=== PATIENT | female | born 1950 | race Caucasian/White ===

== ENCOUNTER 2016-09-10 16:16 | Emergency (ER) | payer MEDICARE, OTHER ==
[~2016-09-10] VITALS: Ht 172.7 cm; Wt 100.0 kg
[~2016-09-10 16:16] MED LIST: ACIDOPHILUS PO; ALDACTONE 25MG25 MG PO; AMBIEN 10MG10 MG PO; AMBIEN CR 12.12.5 MG PO; AMBIEN CR12.5 MG PO; AMPICILLIN 500500 MG PO; ASPIR-LOW81 MG PO; ASPIRIN E.C. 8181 MG PO; ATARAX 25MG25 MG/TAB PO; ATARAX25 MG PO; BACTROBAN 22GM22 GM TP; BIOTIN1000 MCG PO; BIOTIN800 MCG PO; CARAFATE S1 GM/10 ML PO; CENTRUM1 TAB PO; CLONAZEPAM PO; COLACE 100100 MG/CAP PO; CRESTOR20 MG PO; Colace PO; D-31000 IU PO; DULCOLAX; ERY-TAB250 M1 PO; FISH OIL CONC1000 MG PO; FLAXSEED OIL1000 MG PO; FORTAMET500 MG PO; FUROSEMIDE40 MG PO; GABAPENTIN600 MG PO; GARLIC1000 MG PO; GLUCOTROL10 MG PO; GLUCOTROL5 MG PO; HYDROCORTISONE30 G1 TP; K-DUR 10 MEQ T10 MEQ PO; KLOR-CON 1010 MEQ PO; LASIX 20MG TABL20 MG PO; LOPRESSOR 225 MG/TAB PO; LOTRIMIN1% TP; MAG-OX 400400 MG/TAB PO; MAGNESIUM200 MG PO; MONODOX100 PO; MVI; NIZORAL CREAM15 GM TP; NORVASC 10MG10 MG PO; NOVOLOG 100U100 U/M1 SC; OMEGA-3 FISH1200 MG PO; PLAVIX 75MG TAB75 MG PO; PLETAL 100MG T100 MG PO; POLYETHYLENE GL PO; PRIL40 PO; REGLAN 10MG10 MG/TAB PO; RITE AID BIO2500 MCG PO; SANTYL OINT15 GM TP; SLOW-MAG 106 MG1 ECT PO; SPIRONOLACTONE25 MG PO; TEFLARO 60600 MG/VIA IV; TEMOVATE CREAM15 GM TP; TIZANIDINE PO; TRADJENTA5 MG PO; TRAMADOL50 MG PO; TRIAMTERENE W/H1 CAP PO; TYLENOL 500MG500 MG PO; ULTRAM 50MG TAB50 MG PO; VITAMIN B12 PO; VITAMIN C500 MG PO; VITAMIN E100 I3 PO; VITAMIN E1000 IU PO; VYTORIN; ZANAFLEX CAPSULE6 MG PO; ZANAFLEX4 M1 PO; ZYLOPRIM 100MG100 MG PO; [UNRECOGNIZED DRUG - OTHER] TP
[2016-09-10 16:18] VITALS: BP 146/72; TEMP 97.8
[2016-09-10 17:04] LABS: CALCIUM 9.8 mg/dL (8.4-10.2); CREATININE, serum 1.25 mg/dL (0.52-1.25); POTASSIUM 4.2 mmol/L (3.4-5.0)
[2016-09-10 17:52] VITALS: PULSE 76
== END 2016-09-10 17:53 | disposition home or self-care (01) ==
LOC: COL.ER 16:16
PROVIDERS: Emergency Medicine
DX: Z03.89 Encounter for observation for other suspected diseases and conditions ruled out (principal); E11.22 Type 2 diabetes mellitus with diabetic chronic kidney disease; I12.9 Hypertensive chronic kidney disease with stage 1 through stage 4 chronic kidney disease, or unspecified chronic kidney disease; N18.9 Chronic kidney disease, unspecified; I73.9 Peripheral vascular disease, unspecified; Z79.02 Long term (current) use of antithrombotics/antiplatelets; Z79.82 Long term (current) use of aspirin; Z79.84 Long term (current) use of oral hypoglycemic drugs

== ENCOUNTER 2017-02-19 15:34 | Emergency (ER) | payer MEDICARE, OTHER ==
[~2017-02-19] VITALS: Ht 165.1 cm; Wt 115.5 kg
[~2017-02-19 15:34] MED LIST changes: +ALDACTONE 25MG25 M1 PO; -FUROSEMIDE40 MG PO; +LASIX 40MG TABL40 MG PO; -SPIRONOLACTONE25 MG PO
[2017-02-19 15:38] VITALS: TEMP 97.7
[2017-02-19] MEDS ORDERED: GLUCOPHAGE1000 MG PO (16:04)
[2017-02-19] MEDS ORDERED: ERGOCALCIFER50000 IU PO (16:04)
[2017-02-19] MEDS ORDERED: MYSOLINE 5050 MG/TAB PO (16:04)
[2017-02-19] MEDS ORDERED: PEPCID 20MG TAB20 MG PO (16:04)
[2017-02-19] MEDS ORDERED: TEMOVATE0.052 TOP (16:39)
[2017-02-19] MEDS ORDERED: KLONOPIN 1MG1 MG PO (16:39)
[2017-02-19] MEDS ORDERED: COLACE 100100 MG/CAP PO (16:40)
[2017-02-19] MEDS ORDERED: TYLENOL 500MG500 MG PO (16:40)
[2017-02-19] MEDS ORDERED: ERY-TAB250 MG PO (16:41)
[2017-02-19] MEDS ORDERED: FERROUS GL325 MG/TAB PO (16:42)
[2017-02-19] MEDS ORDERED: NEURONTIN300 MG/CAP PO (16:44)
[2017-02-19] MEDS ORDERED: ATARAX 25MG25 MG/TAB PO (16:46)
[2017-02-19] MEDS ORDERED: NOVOLOG FLEX100 U/ML SQ (16:47)
[2017-02-19] MEDS ORDERED: MIRALAX PA17 GM/Dose PO (16:50)
[2017-02-19 17:15] VITALS: BP 185/94; PULSE 71
== END 2017-02-19 17:15 | disposition home or self-care (01) ==
LOC: COL.ER 15:34
DX: S52.502A Unspecified fracture of the lower end of left radius, initial encounter for closed fracture (principal); S00.93XA Contusion of unspecified part of head, initial encounter; I12.9 Hypertensive chronic kidney disease with stage 1 through stage 4 chronic kidney disease, or unspecified chronic kidney disease; E11.22 Type 2 diabetes mellitus with diabetic chronic kidney disease; N18.9 Chronic kidney disease, unspecified; E78.5 Hyperlipidemia, unspecified; I73.9 Peripheral vascular disease, unspecified; Z79.82 Long term (current) use of aspirin; Z79.4 Long term (current) use of insulin; Z23 Encounter for immunization; W01.198A Fall on same level from slipping, tripping and stumbling with subsequent striking against other object, initial encounter; Y92.009 Unspecified place in unspecified non-institutional (private) residence as the place of occurrence of the external cause

== ENCOUNTER 2018-03-02 14:52 | Inpatient (IN) | payer MEDICARE, OTHER ==
[~2018-03-02] VITALS: Ht 165.1 cm; Wt 98.5 kg
[~2018-03-02 14:52] MED LIST changes: +ERGOCALCIFER50000 IU PO; +ERY-TAB250 MG PO; +FERROUS GL325 MG/TAB PO; +GLUCOPHAGE1000 MG PO; +KLONOPIN 1MG1 MG PO; +MIRALAX PA17 GM/Dose PO; +MYSOLINE 5050 MG/TAB PO; +NEURONTIN300 MG/CAP PO; +NOVOLOG FLEX100 U/ML SQ; +PEPCID 20MG TAB20 MG PO; +TEMOVATE0.052 TOP
[2018-03-02 15:38] LABS: BASO % 0.3 % (0.0-2.0); EOS # 0.1 (0.0-0.7); EOS % 0.6 % (0-4.0); GRAN # 6.5 (1.4-6.5); GRAN % 65.2 % (42.2-75.2); HEMATOCRIT 42.6 % (37.0-47.0); HEMOGLOBIN 14.4 g/dl (12.5-16.0); LYMPH # 2.2 (1.2-3.4); MEAN CELL VOLUME 95 fl (80.0-100.0); MEAN CORPUSCULAR HEMOGLOBIN 32 pg (27.0-31.0); MEAN CORPUSCULAR HGB CONC 34 g/dl (33.0-37.0); MONO # 1.1 (0.1-0.6); MONO % 11.4 % (1.7-9.3); PLATELET COUNT 284 K/mm3 (130-400); RED BLOOD COUNT 4.51 M/mm3 (4.10-5.30); REDCELL DISTRIBUTION WIDTH-CV 14.4 % (11.5-14.5)
[2018-03-02 15:53] LABS: ALBUMIN 3.8 gm/dL (3.5-5.0); BILIRUBIN,TOTAL 1.8 mg/dL (0.0-1.0); C-REACTIVE PROTEIN 6.7 mg/dL (0.0-0.9); CALCIUM 9.3 mg/dL (8.4-10.2); CREATININE, serum 0.93 mg/dL (0.52-1.25); POTASSIUM 3.3 mmol/L (3.4-5.0); TOTAL PROTEIN 7.4 gm/dL (6.4-8.2)
[2018-03-02 16:02] LABS: TROPONIN-I 0.028 ng/mL (0.000-0.034)
[2018-03-02 16:30] LABS: COLLECTION METHOD CATHETER
[2018-03-02 16:42] LABS: MUCOUS Present /lpf; PH 7 (5-8); SQUAMOUS EPITHELIAL 0-2 /hpf; URINE APPEARANCE Cloudy; URINE BACTERIA Many /hpf; URINE BILIRUBIN Positive (NEGATIVE); URINE BLOOD Negative (NEGATIVE); URINE COLOR Amber; URINE GLUCOSE Negative (NEGATIVE); URINE KETONE 1+ (NEGATIVE); URINE LEUKOCYTE ESTERASE 3+ (NEGATIVE); URINE NITRATE Negative (NEGATIVE); URINE PROTEIN(semi-quant) 3+ (NEGATIVE); URINE RBC 0-2 /hpf; URINE UROBILINOGEN >=4.0 mg/dL (NEGATIVE)
[2018-03-02] MEDS ORDERED: VTAMINC250TA (17:18)
[2018-03-02] MEDS ORDERED: MULTIPLE VITAMI1 CAP PO (17:20)
[2018-03-02] MEDS ORDERED: TRADJENTA5 MG PO (17:21)
[2018-03-02 20:04] VITALS: BP 124/58; PULSE 76; TEMP 98.6
[2018-03-03] VITALS (7 sets, daily range): BP systolic 139–198; BP diastolic 57–84; PULSE 63–90; TEMP 97.5–98.6
[2018-03-03 13:27] LABS: CALCIUM 8.6 mg/dL (8.4-10.2); CREATININE, serum 0.81 mg/dL (0.52-1.25); POTASSIUM 3.4 mmol/L (3.4-5.0)
[2018-03-04 04:00] VITALS: BP 159/81; PULSE 71; TEMP 98.3
[2018-03-04 07:22] LABS: BASO % 0.5 % (0.0-2.0); EOS # 0.2 (0.0-0.7); EOS % 2.4 % (0-4.0); GRAN # 3.6 (1.4-6.5); HEMATOCRIT 39.6 % (37.0-47.0); HEMOGLOBIN 12.9 g/dl (12.5-16.0); LYMPH # 1.7 (1.2-3.4); LYMPH % 26.7 % (20.0-51.0); MEAN CELL VOLUME 98 fl (80.0-100.0); MEAN CORPUSCULAR HEMOGLOBIN 32 pg (27.0-31.0); MEAN CORPUSCULAR HGB CONC 33 g/dl (33.0-37.0); MEAN PLATELET VOLUME 9.3 fl (7.4-10.4); MONO # 0.7 (0.1-0.6); MONO % 11.8 % (1.7-9.3); PLATELET COUNT 234 K/mm3 (130-400); RED BLOOD COUNT 4.06 M/mm3 (4.10-5.30); REDCELL DISTRIBUTION WIDTH-CV 14.4 % (11.5-14.5)
[2018-03-04 07:49] LABS: CALCIUM 8.8 mg/dL (8.4-10.2); CREATININE, serum 0.69 mg/dL (0.52-1.25); POTASSIUM 3.9 mmol/L (3.4-5.0)
[2018-03-04 09:01] VITALS: BP 153/66; PULSE 77; TEMP 99
[2018-03-04 12:27] VITALS: BP 159/77; PULSE 77; TEMP 97.9
[2018-03-04 15:45] VITALS: BP 212/82; PULSE 80; TEMP 97.5
[2018-03-04 20:29] VITALS: BP 155/64; PULSE 95; TEMP 98.1
[2018-03-05] VITALS (8 sets, daily range): BP systolic 153–185; BP diastolic 54–89; PULSE 77–96; TEMP 98–98.9
[2018-03-05 07:09] LABS: HEMATOCRIT 37.9 % (37.0-47.0); HEMOGLOBIN 12.7 g/dl (12.5-16.0); MEAN CELL VOLUME 95 fl (80.0-100.0); MEAN CORPUSCULAR HEMOGLOBIN 32 pg (27.0-31.0); MEAN CORPUSCULAR HGB CONC 34 g/dl (33.0-37.0); MEAN PLATELET VOLUME 8.9 fl (7.4-10.4); PLATELET COUNT 248 K/mm3 (130-400); REDCELL DISTRIBUTION WIDTH-CV 14.1 % (11.5-14.5)
[2018-03-05 07:19] LABS: CALCIUM 8.9 mg/dL (8.4-10.2); CREATININE, serum 0.72 mg/dL (0.52-1.25); POTASSIUM 3.6 mmol/L (3.4-5.0)
[2018-03-05 07:37] LABS: BAND 5 % (0-10); BASOPHIL 1 % (0-2); EOSINOPHIL 3 % (0-4); LYMPHOCYTE 32 % (20.0-51.0); NEUTROPHILS 50 % (42.0-75.2); PLATELET ESTIMATE NORMAL (NORMAL)
[2018-03-06 00:14] VITALS: BP 154/73; PULSE 88
[2018-03-06 03:20] VITALS: BP 172/70; PULSE 89
[2018-03-06 06:43] LABS: BASO % 0.6 % (0.0-2.0); EOS # 0.2 (0.0-0.7); EOS % 2.4 % (0-4.0); GRAN % 48.1 % (42.2-75.2); HEMATOCRIT 37.5 % (37.0-47.0); HEMOGLOBIN 12.5 g/dl (12.5-16.0); LYMPH # 2.3 (1.2-3.4); LYMPH % 36.5 % (20.0-51.0); MEAN CELL VOLUME 96 fl (80.0-100.0); MEAN CORPUSCULAR HEMOGLOBIN 32 pg (27.0-31.0); MEAN CORPUSCULAR HGB CONC 33 g/dl (33.0-37.0); MEAN PLATELET VOLUME 8.8 fl (7.4-10.4); MONO # 0.8 (0.1-0.6); MONO % 11.8 % (1.7-9.3); PLATELET COUNT 266 K/mm3 (130-400); REDCELL DISTRIBUTION WIDTH-CV 14.4 % (11.5-14.5)
[2018-03-06 06:59] LABS: CALCIUM 9.1 mg/dL (8.4-10.2); CREATININE, serum 0.77 mg/dL (0.52-1.25); POTASSIUM 3.8 mmol/L (3.4-5.0)
[2018-03-06 09:01] VITALS: BP 162/67; PULSE 90; TEMP 97.7
[2018-03-06 11:34] VITALS: BP 161/63; PULSE 78; TEMP 98.4
[2018-03-06] MEDS ORDERED: DOXYCYCLINE HY100 MG PO (13:46)
[2018-03-06] MEDS ORDERED: NORVASC 10MG10 MG PO (13:47)
[2018-03-06] MEDS ORDERED: ULTRAM 50MG TAB50 MG PO (13:52)
[2018-03-06 15:24] VITALS: BP 161/63; PULSE 78; TEMP 98.4
== END 2018-03-06 17:16 | DRG 603 ==
LOC: COL.ER 14:52 → SURG 18:47 → MEDICAL 03-04 18:02
PROVIDERS: Emergency Medicine; Internal Medicine; Physician Assistant
DX: L03.311 Cellulitis of abdominal wall (principal); N39.0 Urinary tract infection, site not specified; L03.115 Cellulitis of right lower limb; Z66 Do not resuscitate; E11.51 Type 2 diabetes mellitus with diabetic peripheral angiopathy without gangrene; B95.62 Methicillin resistant Staphylococcus aureus infection as the cause of diseases classified elsewhere; E66.01 Morbid (severe) obesity due to excess calories; Z68.36 Body mass index [BMI] 36.0-36.9, adult; B96.4 Proteus (mirabilis) (morganii) as the cause of diseases classified elsewhere; I10 Essential (primary) hypertension; K21.9 Gastro-esophageal reflux disease without esophagitis; Z87.891 Personal history of nicotine dependence; E87.6 Hypokalemia
CPT/HCPCS: 99223-AI; 99231-AI; 99233-AI; 99239; G8978-GP; G8979-GP; J0360; J0696; J1335; J1644; J1815; J2405; J3370; J7030; J7050

== ENCOUNTER 2018-03-30 22:15 | Inpatient (IN) | payer MEDICARE, OTHER ==
[~2018-03-30] VITALS: Ht 165.1 cm; Wt 99.7 kg
[~2018-03-30 22:15] MED LIST changes: +DOXYCYCLINE HY100 MG PO; +MULTIPLE VITAMI1 CAP PO; +VTAMINC250TA
[2018-03-30 22:59] LABS: BASO # 0.1 (0.0-0.2); BASO % 0.4 % (0.0-2.0); EOS % 0.2 % (0-4.0); GRAN # 12.2 (1.4-6.5); GRAN % 75.3 % (42.2-75.2); HEMOGLOBIN 11.4 g/dl (12.5-16.0); LYMPH # 2.5 (1.2-3.4); LYMPH % 15.4 % (20.0-51.0); MEAN CELL VOLUME 94 fl (80.0-100.0); MEAN CORPUSCULAR HEMOGLOBIN 32 pg (27.0-31.0); MEAN CORPUSCULAR HGB CONC 34 g/dl (33.0-37.0); MEAN PLATELET VOLUME 8.3 fl (7.4-10.4); MONO # 1.3 (0.1-0.6); MONO % 8.1 % (1.7-9.3); PLATELET COUNT 478 K/mm3 (130-400); RED BLOOD COUNT 3.62 M/mm3 (4.10-5.30); REDCELL DISTRIBUTION WIDTH-CV 13.9 % (11.5-14.5)
[2018-03-30 23:08] LABS: ALBUMIN 3.7 gm/dL (3.5-5.0); BILIRUBIN,TOTAL 0.8 mg/dL (0.0-1.0); CALCIUM 9.3 mg/dL (8.4-10.2); CREATININE, serum 0.83 mg/dL (0.52-1.25); TOTAL PROTEIN 7.4 gm/dL (6.4-8.2)
[2018-03-30 23:10] LABS: COLLECTION METHOD CATHETER
[2018-03-30 23:23] LABS: PH 5 (5-8); SQUAMOUS EPITHELIAL None Seen /hpf; URINE APPEARANCE Turbid; URINE BACTERIA None Seen /hpf; URINE BILIRUBIN Negative (NEGATIVE); URINE BLOOD 1+ (NEGATIVE); URINE COLOR Amber; URINE GLUCOSE Negative (NEGATIVE); URINE KETONE Trace (NEGATIVE); URINE LEUKOCYTE ESTERASE 2+ (NEGATIVE); URINE NITRATE Negative (NEGATIVE); URINE PROTEIN(semi-quant) 2+ (NEGATIVE); URINE RBC >50 /hpf; URINE UROBILINOGEN >=4.0 mg/dL (NEGATIVE)
[2018-03-31 01:58] VITALS: BP 134/47; PULSE 83; TEMP 98.6
[2018-03-31] MEDS ORDERED: NEURONTIN600 MG/TAB PO (05:10)
--- NOTE | 2018-03-31 05:39 | NUR ---
Pt came to the floor from the ED mid shift, initial assessments completed, family history checked, no C/O pain beyond her normal baseline, Vs have been stable. Pt did try and sleep very late in the shift.
[2018-03-31 06:27] LABS: BASO % 0.2 % (0.0-2.0); EOS % 0.3 % (0-4.0); GRAN % 66.2 % (42.2-75.2); HEMOGLOBIN 10.3 g/dl (12.5-16.0); LYMPH # 2.8 (1.2-3.4); LYMPH % 22.8 % (20.0-51.0); MEAN CELL VOLUME 96 fl (80.0-100.0); MEAN CORPUSCULAR HEMOGLOBIN 31 pg (27.0-31.0); MEAN CORPUSCULAR HGB CONC 32 g/dl (33.0-37.0); MEAN PLATELET VOLUME 8.4 fl (7.4-10.4); MONO # 1.2 (0.1-0.6); MONO % 9.9 % (1.7-9.3); PLATELET COUNT 416 K/mm3 (130-400); RED BLOOD COUNT 3.33 M/mm3 (4.10-5.30); REDCELL DISTRIBUTION WIDTH-CV 14.1 % (11.5-14.5)
[2018-03-31 06:28] LABS: HEMATOCRIT 31.9 % (37.0-47.0)
[2018-03-31 06:42] LABS: CALCIUM 8.6 mg/dL (8.4-10.2); CREATININE, serum 0.75 mg/dL (0.52-1.25); POTASSIUM 3.1 mmol/L (3.4-5.0)
[2018-03-31 08:27] VITALS: BP 157/77; PULSE 89; TEMP 98.4
--- NOTE | 2018-03-31 10:12 | NUR ---
Initial visit; Patient thanked C[employer]os [employer] Developer for looking in on her and offering God's blessings and keeping her in [employer]'s prayers.
[2018-03-31 10:55] VITALS: BP 147/62; PULSE 77; TEMP 99.1
--- NOTE | 2018-03-31 11:04 | NUR ---
Assessment completed, alert/oriented, vital signs stable, patient has an extensive amount of wounds and sores to her sacral/buttocks, RLE/ foot, unnder abdominal folds/panis/groin, wound care consulted and I have spoke with them on the phone this morning, they hope to get to the hospital by tommorow, she is started on IVF and IV abx for UTI, turning and repositioning at least every 1-2 hours, toileting often to keep skin dry, Surgical/ ID/ Ortho consults ahve been made
--- NOTE | 2018-03-31 11:09 | NUR ---
Patient has large open wound/sore to her right innner buttock (stg II), she has a smaller stg II wound/sore to her inner left buttock, RLE has extensive wound/open areas due to poor circulation, right great toe is black and necrotic and Ortho consulted for this, patient has severe excoriation and irritation under her abdomnial folds and in her groin with an extensive amount of wounds/ open areas
[2018-03-31 14:57] VITALS: BP 145/54; PULSE 93; TEMP 99
--- NOTE | 2018-03-31 16:32 | NUR ---
FLORA met with the patient to discuss discharge plan. The patient has been residing at [facility] for a skilled stay. The patient reports that she is unsure if she would like to return there upon discharge and states that it is too early for her to make any decisions. The patient's PCP is Dr. Clyde Titus and she does not have any advanced directives. The patient states that she will think about if she wants to complete them or not. FLORA has contacted and updated Mikey at [facility] and will continue to follow.
--- NOTE | 2018-03-31 18:15 | NUR ---
Discharge instructions reviewed with the patient and his , instructed to follow up with PCP in 1 week/ already scheduled with /Sudheer, instructed to eat low fiber diet untill follow up, scripts for prilosec and Carafate given to patient, left arm IV site removed, leaving with / I personally escorted them out the door
--- NOTE | 2018-03-31 19:18 | NUR ---
Resting in bed asleep. Call light in reach.
[2018-03-31 20:46] VITALS: BP 147/54; PULSE 89; TEMP 99.1
--- NOTE | 2018-03-31 21:06 | NUR ---
Up to bedside commode and returned to bed x2 assist. Assessment complete. Lungs clear. Pulses absent in right lower leg. Right great toe necrotic, right lower leg wound present, dressed with nonstick dressing and kerlix. Several open wounds in ABD fold and shweta area. Dressing in place as per wound care guidelines. Wounds to buttock area dressed by previous shift-dressing intact. Reports 10/10 pain in right lower leg. Provided PRN tylenol. Blood sugar 78. Educated patient to eat snack. Ate 3 spoonfuls of pudding then refused any other snacks. Denies other needs. Will monitor.
[2018-04-01] VITALS (9 sets, daily range): BP systolic 129–160; BP diastolic 47–86; PULSE 77–98; TEMP 98.2–98.7
--- NOTE | 2018-04-01 00:25 | NUR ---
Resting in bed. Reports 6/10 pain in right leg. Gave scheduled ultram. Denies other needs. Call light in reach.
--- NOTE | 2018-04-01 03:59 | NUR ---
Resting in bed. Denies needs. Call light in reach.
--- NOTE | 2018-04-01 04:05 | NUR ---
Resting in bed. Denies needs at this time. Call light in reach.
--- NOTE | 2018-04-01 06:36 | NUR ---
Left for OR. Preop pepcid and NS given. Had uneventful night.
[2018-04-01 06:39] LABS: BASO % 0.3 % (0.0-2.0); EOS # 0.1 (0.0-0.7); EOS % 0.6 % (0-4.0); GRAN # 8.7 (1.4-6.5); GRAN % 73.8 % (42.2-75.2); HEMATOCRIT 31.2 % (37.0-47.0); HEMOGLOBIN 10.4 g/dl (12.5-16.0); LYMPH # 2.1 (1.2-3.4); LYMPH % 17.9 % (20.0-51.0); MEAN CELL VOLUME 94 fl (80.0-100.0); MEAN CORPUSCULAR HEMOGLOBIN 31 pg (27.0-31.0); MEAN CORPUSCULAR HGB CONC 33 g/dl (33.0-37.0); MEAN PLATELET VOLUME 8.3 fl (7.4-10.4); MONO # 0.8 (0.1-0.6); MONO % 6.8 % (1.7-9.3); PLATELET COUNT 441 K/mm3 (130-400); RED BLOOD COUNT 3.32 M/mm3 (4.10-5.30); REDCELL DISTRIBUTION WIDTH-CV 13.9 % (11.5-14.5)
--- NOTE | 2018-04-01 07:15 | NUR ---
Patient is not on the Medical floor at this time, she went down to OR at 0630 for amputation of right great toe
[2018-04-01 07:19] LABS: CALCIUM 8.6 mg/dL (8.4-10.2); CREATININE, serum 0.63 mg/dL (0.52-1.25); MAGNESIUM 1.9 mg/dL (1.6-2.3); POTASSIUM 3.7 mmol/L (3.4-5.0)
--- NOTE | 2018-04-01 09:35 | NUR ---
patient arrived back to the Medical floor from PACU at this time, she is alert/oriented, moderate amount of pain to right foot/ leg but it is tolerable at this time, vital signs stable, right foot/ RLE wrapped in dressing
--- NOTE | 2018-04-01 19:04 | NUR ---
Resting in bed. Assisted onto bed emerson. Provided call light. Will call when finished.
--- NOTE | 2018-04-01 19:18 | NUR ---
Assisted off bedpan. No results. Assessment complete. Lungs clear. Wounds present in ABD folds. Intradry present. Dressing to bilateral buttock clean, dry, intact. Right great toe amputated-dressing in place to toe and right lower extremity, CDI. Pulses weak in left lower extremity. Reports 4/10 pain in right leg. Denies needs at this time. Call light in reach. Will monitor.
--- NOTE | 2018-04-01 22:22 | NUR ---
Resting in bed asleep. Call light in reach.
--- NOTE | 2018-04-01 23:30 | NUR ---
Bed alarm sounding. Upon arrival in room patient sitting at bedside attemping to "get up to go to restroom." Staff assisted patient to bedside commode X2 assist and returned to bed. Denies other needs. Call light in reach.
[2018-04-02] VITALS (7 sets, daily range): BP systolic 114–152; BP diastolic 55–69; PULSE 66–85; TEMP 96.5–98
--- NOTE | 2018-04-02 04:23 | NUR ---
Resting in bed asleep. Call light in reach.
--- NOTE | 2018-04-02 06:12 | NUR ---
Uneventful night. Reports 5/10 pain in right foot this AM. Provided schedule tramadol. Denies other needs. Call light in reach.
[2018-04-02 06:39] LABS: BASO % 0.1 % (0.0-2.0); GRAN # 8.1 (1.4-6.5); GRAN % 79.7 % (42.2-75.2); LYMPH # 1.3 (1.2-3.4); LYMPH % 12.6 % (20.0-51.0); MEAN CELL VOLUME 96 fl (80.0-100.0); MEAN CORPUSCULAR HGB CONC 33 g/dl (33.0-37.0); MEAN PLATELET VOLUME 8.5 fl (7.4-10.4); MONO # 0.7 (0.1-0.6); MONO % 6.8 % (1.7-9.3); PLATELET COUNT 390 K/mm3 (130-400); RED BLOOD COUNT 2.94 M/mm3 (4.10-5.30); REDCELL DISTRIBUTION WIDTH-CV 13.8 % (11.5-14.5)
[2018-04-02 06:43] LABS: HEMATOCRIT 28.1 % (37.0-47.0); HEMOGLOBIN 9.2 g/dl (12.5-16.0); MEAN CORPUSCULAR HEMOGLOBIN 31 pg (27.0-31.0)
[2018-04-02 06:56] LABS: CALCIUM 8.5 mg/dL (8.4-10.2); CREATININE, serum 0.71 mg/dL (0.52-1.25); POTASSIUM 3.6 mmol/L (3.4-5.0)
--- NOTE | 2018-04-02 07:00 | NUR ---
Report given to BARTOLO Gutierrez.
--- NOTE | 2018-04-02 09:30 | NUR ---
Pt is awake and A/Ox4, sitting up in bed working on eating breakfast. She denies pain at this time. IVF are infusing into left FA without complications. Right foot/lower extremity remains in surgical dressing, CDI. Pt denies any other needs at this time.
--- NOTE | 2018-04-02 11:03 | NUR ---
FLORA met with the patient to review discharge plan and therapies recommendation of SNF. The patient reports that she is agreeable to resume SNF upon discharge. FLORA presented and explained the patient choice form. The patient did prefer 1) [facility] 2) Returning back to [facility]. FLORA has contacted and faxed a referral to Ant at [facility]. FLORA faxed updates to Mikey at [facility] and will continue to follow.
--- NOTE | 2018-04-02 13:50 | NUR ---
Ant, at [facility], reports that they do not have any female beds available at this time. SW to inform the patient and continue to follow.
--- NOTE | 2018-04-02 18:29 | NUR ---
Pt has had an uneventful shift. She reports no pain while resting in bed, but that the pain increases with movement. Denies any other needs.
--- NOTE | 2018-04-02 19:24 | NUR ---
ASSISTED PT TO BSC. INCONT SMALL LOOSE DARK STOOL NOTED. MEPILEX ON COCCYX HAS FALLEN OFF. STAGE TWO NOTED. ENC PT TO SHIFT WEIGHT SIDE TO SIDE OFF ULCERTS. DRSG TO RT FOOT CDI.
--- NOTE | 2018-04-02 20:30 | NUR ---
PT RESTING IN BED. ISOLATION FOR MRSA. SEE ASSESSMENT. PT HAS MULTIPLE OPEN ULCERS. SEE MAR FOR PAIN MED GIVEN. PT ORIENTED TO PLACE BUT TOPIC OF CONVERSATION MAKING NO SENSE. PT HAS MAJOR TREMORS OF THE HANDS. POOR HAND COORDINATION. CALL LIGHT IN REACH. BED ALARM SET.
[2018-04-03 04:15] VITALS: BP 157/80; PULSE 54; TEMP 97.8
[2018-04-03 05:58] LABS: BASO % 0.3 % (0.0-2.0); EOS # 0.1 (0.0-0.7); EOS % 1.2 % (0-4.0); GRAN # 5.3 (1.4-6.5); GRAN % 57.5 % (42.2-75.2); LYMPH # 3.1 (1.2-3.4); MEAN CELL VOLUME 98 fl (80.0-100.0); MEAN CORPUSCULAR HGB CONC 32 g/dl (33.0-37.0); MEAN PLATELET VOLUME 8.5 fl (7.4-10.4); MONO # 0.7 (0.1-0.6); MONO % 7.6 % (1.7-9.3); PLATELET COUNT 420 K/mm3 (130-400); RED BLOOD COUNT 2.93 M/mm3 (4.10-5.30); REDCELL DISTRIBUTION WIDTH-CV 14.2 % (11.5-14.5)
[2018-04-03 05:59] LABS: HEMATOCRIT 28.8 % (37.0-47.0); HEMOGLOBIN 9.2 g/dl (12.5-16.0); MEAN CORPUSCULAR HEMOGLOBIN 31 pg (27.0-31.0)
[2018-04-03 06:17] LABS: CALCIUM 8.6 mg/dL (8.4-10.2); CREATININE, serum 0.77 mg/dL (0.52-1.25); POTASSIUM 3.6 mmol/L (3.4-5.0)
--- NOTE | 2018-04-03 06:37 | NUR ---
PT HAS SLEPT WELL THROUGH THE NIGHT. RT LEG ELEVATED- DRSG DRY & INTACT. LAB HERE EARLIER TO DRAW BLOOD.
--- NOTE | 2018-04-03 07:00 | NUR ---
Report received from BARTOLO Jhaveri. Pt sleeping in bed at this time. Will continue to monitor.
[2018-04-03 09:23] VITALS: BP 143/80; PULSE 77; TEMP 98.6
--- NOTE | 2018-04-03 10:18 | NUR ---
Initial visit; Nel thanked Food Inspector for looking in on her and offering God's blessings and to keep her in Food Inspector's prayers.
--- NOTE | 2018-04-03 10:30 | NUR ---
Pt in bed after using commode. Large urine output of clear yellow urine on commode. PICC to KELLY has IVF and ATB. Wounds to pannus and groin area have dressings per wound care. Mepilex and aquacel foam to sacrem wounds/ulcers and are CDI. LLE is reddened. RLE foot is dressed and CDI, elevated on pillows. Pain is 6/10, PRN pain meds given. PT trying to turn on own to releive pressure areas. Wound care states they cannot visit pt today and awaiting call back on confirmed time and date to see them. Will continue to monitor.
[2018-04-03] MEDS ORDERED: MAXIPIME2 GM IV (10:50)
[2018-04-03] MEDS ORDERED: VANCOCIN HCL1 GM IV (10:51)
[2018-04-03 12:21] VITALS: BP 131/67; PULSE 69; TEMP 97.7
--- NOTE | 2018-04-03 12:30 | NUR ---
PICC intact right upper arm with sterile dressing change done with insertion site cleansed with chloraprep x 1, skin prep, stat lock, and tegaderm applied. gauze removed with no drainage noted. no signs or symptoms of IV complications noted. no concerns voiced. re-wrapped with josiah to protect catheter.
[2018-04-03] MEDS ORDERED: DIFLUCAN200 MG PO (13:53)
[2018-04-03] MEDS ORDERED: NYAMYC100000 U/G TP (13:54)
--- NOTE | 2018-04-03 15:10 | NUR ---
Mikey, at [facility], contacted FLORA to inform that they are unable to administer IV antibiotics at this time. FLORA informed the patient and clinical team. The patient was agreeable for FLORA to send a referral to [facility] and [facility]. Referrals were made. Linda, at [facility], reports that they have declined the patient. Joyce, at [facility], reports that they can accept the patient. FLORA informed the patient and she is agreeable to transfer there upon discharge. The patient was also agreeable for FLORA to contact her sister, Ruchi. FLORA contacted Ruchi at [employer] [facility] [employer], where she is employed. FLORA informed Ruchi of where the patient is discharging to. FLORA was also able to inquire her cell phone number and FLORA provided the phone number to the patient. The patient is to discharge today, 04/03, to [facility]. Transportation was set for 1545, via [facility]. FLORA informed the patient, patient's nurse, and [facility]. FLORA also updated [facility] and [facility] is to bring the patient's belongings to the hospital. FLORA also presented and explained the IM form to the patient. The patient verbalized understanding, signed, and she was provided a copy. No additional needs at this time.
[2018-04-03 15:24] VITALS: BP 131/67; PULSE 69; TEMP 97.7
--- NOTE | 2018-04-03 16:15 | NUR ---
Transferred pt at this time. Report called to [facility]. Pt leaving with PICC to [facility]. Antibiotics finished infusing today. Pt transferred in own clothes with all belongings via cart with ambulance drivers. Criteria met.
== END 2018-04-03 16:00 | disposition swing bed (61) | DRG 853 ==
LOC: COL.ER 22:15 → MEDICAL 03-31 00:01
PROVIDERS: Emergency Medicine; Nurse Practitioner Family; Orthopaedic Surgery; Physician Assistant; ADMIT Hospitalist
PROC: 0Y6P0Z0 Detachment at Right 1st Toe, Complete, Open Approach (ICD-10-PCS; principal; 2018-04-01 07:00)
PROC: 0JBN0ZZ Excision of Right Lower Leg Subcutaneous Tissue and Fascia, Open Approach (ICD-10-PCS; 2018-04-01 07:00)
DX: A41.9 Sepsis, unspecified organism (principal); L89.153 Pressure ulcer of sacral region, stage 3; N39.0 Urinary tract infection, site not specified; L03.115 Cellulitis of right lower limb; E87.2 Acidosis; E11.52 Type 2 diabetes mellitus with diabetic peripheral angiopathy with gangrene; I70.261 Atherosclerosis of native arteries of extremities with gangrene, right leg; L97.811 Non-pressure chronic ulcer of other part of right lower leg limited to breakdown of skin; M79.3 Panniculitis, unspecified; I87.2 Venous insufficiency (chronic) (peripheral); D64.9 Anemia, unspecified; D47.3 Essential (hemorrhagic) thrombocythemia; E11.22 Type 2 diabetes mellitus with diabetic chronic kidney disease; I12.9 Hypertensive chronic kidney disease with stage 1 through stage 4 chronic kidney disease, or unspecified chronic kidney disease; N18.9 Chronic kidney disease, unspecified; B95.62 Methicillin resistant Staphylococcus aureus infection as the cause of diseases classified elsewhere; B96.5 Pseudomonas (aeruginosa) (mallei) (pseudomallei) as the cause of diseases classified elsewhere; L89.322 Pressure ulcer of left buttock, stage 2; L89.312 Pressure ulcer of right buttock, stage 2; Z87.891 Personal history of nicotine dependence; Z88.2 Allergy status to sulfonamides; Z88.8 Allergy status to other drugs, medicaments and biological substances; Z91.040 Latex allergy status; E11.622 Type 2 diabetes mellitus with other skin ulcer
CPT/HCPCS: 99222-AI; 99232-AI; 99239; A4216; C1751; J0690; J0692; J0696; J1100; J1170; J1815; J2185; J2250; J2405; J2704; J3010; J3370; J7030; J7050

== ENCOUNTER → 2018-04-06 | Outpatient (REF) ==
[~2018-04-06] MED LIST changes: +DIFLUCAN200 MG PO; +MAXIPIME2 GM IV; +NEURONTIN600 MG/TAB PO; +NYAMYC100000 U/G TP; +VANCOCIN HCL1 GM IV
[2018-04-06 09:49] LABS: C-REACTIVE PROTEIN 4.9 mg/dL (0.0-0.9)
[2018-04-06 09:54] LABS: VANCOMYCIN TROUGH 20.44 ug/mL (7.00-20.00)
== END ==
LOC: ZLAB.WCH 09:28
PROVIDERS: Family Medicine
DX: Z01.89 Encounter for other specified special examinations (principal)

== ENCOUNTER → 2018-04-08 | Outpatient (REF) | LOC: ZLAB.WCH 16:09 | DX: Z01.89 Encounter for other specified special examinations (principal) ==

== ENCOUNTER → 2018-04-13 | Outpatient (REF) ==
[2018-04-13 09:03] LABS: C-REACTIVE PROTEIN 4.2 mg/dL (0.0-0.9)
== END ==
LOC: ZLAB.WCH 08:39
PROVIDERS: Family Medicine
DX: Z01.89 Encounter for other specified special examinations (principal)

== ENCOUNTER → 2018-04-20 | Outpatient (REF) ==
[2018-04-20 09:12] LABS: C-REACTIVE PROTEIN 2.4 mg/dL (0.0-0.9)
[2018-04-20 09:14] LABS: VANCOMYCIN TROUGH 14.73 ug/mL (7.00-20.00)
== END ==
LOC: ZLAB.WCH 08:35
PROVIDERS: Family Medicine
DX: Z01.89 Encounter for other specified special examinations (principal)

== ENCOUNTER → 2018-04-24 | Outpatient (REF) | LOC: ZLAB.WCH 16:14 | DX: Z01.89 Encounter for other specified special examinations (principal) ==

== ENCOUNTER → 2018-04-27 | Outpatient (REF) | LOC: ZLAB.WCH 16:13 | DX: Z01.89 Encounter for other specified special examinations (principal) ==

== ENCOUNTER → 2018-04-30 | Outpatient (REF) | LOC: ZLAB.WCH 16:55 | DX: Z01.89 Encounter for other specified special examinations (principal) ==

== ENCOUNTER → 2018-05-04 | Outpatient (REF) | LOC: ZLAB.WCH 08:38 | DX: Z01.89 Encounter for other specified special examinations (principal) ==

== ENCOUNTER → 2018-05-06 | Outpatient (REF) | LOC: ZLAB.WCH 16:22 | DX: Z01.89 Encounter for other specified special examinations (principal) ==

== ENCOUNTER → 2018-05-11 | Outpatient (REF) | LOC: ZLAB.WCH 16:13 | DX: Z01.89 Encounter for other specified special examinations (principal) ==

== ENCOUNTER 2018-05-14 12:52 | Inpatient (IN) | payer MEDICARE, OTHER ==
[~2018-05-14] VITALS: Ht 165.1 cm; Wt 118.0 kg
[2018-05-20] VITALS (12 sets, daily range): BP systolic 127–159; BP diastolic 54–83; PULSE 64–80; TEMP 97.8–99
[2018-05-20] MEDS ORDERED: NYSTATIN CREAM15 GM TP (06:36)
[2018-05-20] MEDS ORDERED: COZAAR100 MG PO (06:38)
[2018-05-20] MEDS ORDERED: HCTZ 25MG TAB25 MG PO (06:40)
[2018-05-20] MEDS ORDERED: INDERAL40 MG PO (06:40)
[2018-05-20] MEDS ORDERED: ZINC SULFATE220 M1 PO (06:41)
[2018-05-20] MEDS ORDERED: MEGACE ORAL40 MG/ML PO (06:42)
[2018-05-20] MEDS ORDERED: ACIDOPHILIS PO (06:43)
[2018-05-20] MEDS ORDERED: GLUCOTROL 5M5 MG/TAB PO (06:44)
--- NOTE | 2018-05-20 06:44 | NUR ---
PATIENT ROOM 7 PER [facility] AND TRANSFERED TO CART. PATIENT ALERT AND ORIENTED TO PERSON AND PLACE. VERBALIZES UNDERSTANDING OF SURGERY AND CONSENT SIGNED. CONTACT ISOLATION MAINTAINED DUE TO HX OF MRSA. PATIENT STATES THAT SHE HAS BEEN AT [facility] FOR SWING BED. JENNIFER WRAP DRESSING DRY ON THE RIGHT LOWER EXTREMITY. PICC LINE NOTED RIGHT UPPER ARM. PURPLE PORT FLUSHEDWITH MINIMAL BLOOD RETURN AND IVF CONNECTED TO SITE.
[2018-05-20] MEDS ORDERED: VENELEX OINTMEN30 GM TP (06:45)
[2018-05-20] MEDS ORDERED: NORMAL SALINE F10 ML IV ×2 (06:46)
[2018-05-20] MEDS ORDERED: LEXAPRO 10MG10 MG PO (06:47)
[2018-05-20] MEDS ORDERED: HEPARIN LOCK FLU5 M1 IV ×2 (06:48→06:49)
[2018-05-20] MEDS ORDERED: JANUVIA 100MG100 MG PO (06:51)
[2018-05-20] MEDS ORDERED: NORVASC 10MG10 MG PO (06:53)
[2018-05-20] MEDS ORDERED: NEURONTIN100 MG/CAP PO (06:54)
[2018-05-20] MEDS ORDERED: ULTRAM 50MG TAB50 MG PO (06:59)
[2018-05-20] MEDS ORDERED: LIPITOR 40MG TA40 MG PO (07:01)
[2018-05-20] MEDS ORDERED: TYLENOL 325MG325 MG PO (07:02)
[2018-05-20] MEDS ORDERED: GOOD SENSE400 MG/5 M PO (07:03)
[2018-05-20] MEDS ORDERED: NORCO 325 MG-7.1 TAB PO (07:04)
--- NOTE | 2018-05-20 11:30 | NUR ---
Patient has been doing ok since getting back from surgery at 0900. She is very uncomfortable. I have repositioned her and lossened the brace to her leg. She also recieved pain medications but nothing seems to help. Described phantom pain and she said that sounds similar to what she is feeling. No other changes at this time. Call light within reach. Will continue to monitor.
--- NOTE | 2018-05-20 12:45 | NUR ---
PICC intact right upper arm with sterile dressing change done with insertion site cleansed with chloraprep x 1, chlorhexidine imgregnated disk applied. skin prep, stat lock, and tegaderm applied. port flushed with 20ml normal saline with good blood return noted. no signs or symptoms of IV complications noted. no concerns voiced. re-wrapped with josiah to protect catheter.
--- NOTE | 2018-05-20 15:49 | NUR ---
Initial visit; Patient thanked maintenance and custodian supervisor for looking in on her per request. Interstate [employer] Driver offered prayer and will keep her in maintenance and custodian supervisor's prayers. [employer] Driver will continue to look in on pat.
--- NOTE | 2018-05-20 18:00 | NUR ---
Patient has had several different types of pain medications, she stated they are helping but she continues to have pain. She has had norco twice, roxicodone and dilauded since surgery. No complaints of nausea. She is more drowsy this afternoon. No other changes at this time. Call light within reach.
--- NOTE | 2018-05-20 21:40 | NUR ---
Pt resting in bed, has C/O pain, shift asesments complete, left Pt bed in lowest position, call light in reach.
[2018-05-21] VITALS: BP 146/78; PULSE 73; TEMP 97.9
--- NOTE | 2018-05-22 12:53 | NUR ---
05/21 - SW met with patient to discuss discharge planning. Patient's PCP is Dr Titus and she obtains prescriptions from [facility] or [facility]. Patient reports no DME or home health services are used. Patient does not have a DPOA and she is not interested in that at this time. Patient was admitted from [facility] the plan is to retuen there upon discharge. SW will continue to follow and assist with discharge needs.
[2018-05-22] MEDS ORDERED: ASPI325T6 PO (13:02)
[2018-05-22] MEDS ORDERED: PERCOCET 325 MG1 TA2 PO (13:13)
--- NOTE | 2018-05-22 13:32 | NUR ---
Called SCOTTY Hayes. Orders received, updated [facility] with discharge today, director of social media marketing will schedule EMS transport. PRN pain meds will be provided. Will update patient and get ready for transfer.
[2018-05-22 14:18] VITALS: BP 150/95; PULSE 78; TEMP 100.1
--- NOTE | 2018-05-22 14:32 | NUR ---
Patient will be tranferred to [facility] Bed today. SW arranged 9 line transport.
--- NOTE | 2018-05-22 14:34 | NUR ---
Report called to [facility]. Pt updated on status of trasnport. Called SCOTTY Grant and he will do doctor to doctor call. Awaiting EMS but otherwwise pt ready for transfer.
--- NOTE | 2018-05-22 15:00 | NUR ---
PT left via cart with EMS staff for [place]. Denies needs, report called, criteria met.
== END 2018-05-22 15:00 | disposition swing bed (61) | DRG 617 ==
LOC: INPTSU 05-20 05:53 → SURG 05-20 07:30
PROVIDERS: ADMIT Orthopaedic Surgery Sports Medicine
PROC: 0Y6H0Z1 Detachment at Right Lower Leg, High, Open Approach (ICD-10-PCS; principal; 2018-05-20 07:30)
DX: E11.622 Type 2 diabetes mellitus with other skin ulcer (principal); L97.819 Non-pressure chronic ulcer of other part of right lower leg with unspecified severity; L97.311 Non-pressure chronic ulcer of right ankle limited to breakdown of skin; E11.621 Type 2 diabetes mellitus with foot ulcer; Z79.4 Long term (current) use of insulin; T87.89 Other complications of amputation stump; Z89.411 Acquired absence of right great toe; Z88.2 Allergy status to sulfonamides; Z88.8 Allergy status to other drugs, medicaments and biological substances; Z91.040 Latex allergy status; Z87.891 Personal history of nicotine dependence; E11.51 Type 2 diabetes mellitus with diabetic peripheral angiopathy without gangrene
CPT/HCPCS: J0690; J1170; J2250; J2405; J2704; J3010; J7120; L1830

== ENCOUNTER → 2018-05-22 | Outpatient (REF) ==
[~2018-05-22] MED LIST changes: +ACIDOPHILIS PO; +ASPI325T6 PO; +COZAAR100 MG PO; +GLUCOTROL 5M5 MG/TAB PO; +GOOD SENSE400 MG/5 M PO; +HCTZ 25MG TAB25 MG PO; +HEPARIN LOCK FLU5 M1 IV; +INDERAL40 MG PO; +JANUVIA 100MG100 MG PO; +LEXAPRO 10MG10 MG PO; +LIPITOR 40MG TA40 MG PO; +MEGACE ORAL40 MG/ML PO; +NEURONTIN100 MG/CAP PO; +NORCO 325 MG-7.1 TAB PO; +NORMAL SALINE F10 ML IV; +NYSTATIN CREAM15 GM TP; +PERCOCET 325 MG1 TA2 PO; +TYLENOL 325MG325 MG PO; +VENELEX OINTMEN30 GM TP; +ZINC SULFATE220 M1 PO
== END ==
LOC: ZLAB.WCH 19:20
DX: Z01.89 Encounter for other specified special examinations (principal)

== ENCOUNTER → 2018-05-27 | Outpatient (REF) | LOC: ZLAB.WCH 08:35 | DX: Z01.89 Encounter for other specified special examinations (principal) ==

== ENCOUNTER → 2018-06-03 | Outpatient (REF) | LOC: ZLAB.WCH 17:59 | DX: Z01.89 Encounter for other specified special examinations (principal) ==

== ENCOUNTER 2018-06-09 13:07 | Outpatient (CLI) | payer MEDICARE, OTHER ==
--- NOTE | 2018-06-09 13:00 | NUR ---
Pt to EU 9 per cart by EMS from [facility] for PICC lice placement. Pt resting well at this time.
[~2018-06-09 13:07] MED LIST changes: +B-121000 MCG PO; -D-31000 IU PO; -VITAMIN B12 PO; +VITAMIN D31000 I1 PO
[2018-06-09 14:15] VITALS: BP 110/81; PULSE 88; TEMP 98.6
--- NOTE | 2018-06-09 14:30 | NUR ---
Report called to Kya Montenegro RN at [facility]-PICC placement completed. Pt transfered to [facility] and discharged by EMS back to [facility].
[2018-06-09] MEDS ORDERED: CIPRO 250MG TA250 MG PO (16:33)
[2018-06-09] MEDS ORDERED: EFFEXOR XR75 MG/CAP PO (16:37)
[2018-06-09] MEDS ORDERED: MICATIN2% TP (16:41)
[2018-06-09] MEDS ORDERED: VANCOMYCIN HYD750 MG IV (16:46)
[2018-06-09] MEDS ORDERED: ANUSOL HC CREAM30 GM TP (16:48)
[2018-06-09] MEDS ORDERED: ATIVAN 0.50.5 MG/TAB PO (16:49)
[2018-06-09] MEDS ORDERED: OXY IR5 MG PO (16:51)
[2018-06-09] MEDS ORDERED: ZINC OXIDE 28GM TP (16:53)
== END 2018-06-09 14:45 ==
LOC: EUO 13:07
DX: S31.809A Unspecified open wound of unspecified buttock, initial encounter (principal)
CPT/HCPCS: C1751